=== PATIENT | male | born 1995 | race Caucasian/White ===

== ENCOUNTER → 2016-12-30 | Outpatient (CLI) | payer OTHER ==
[~2016-12-30] MED LIST: CONRAY-43 43% 50ML VIAL (Q9960) As Ordered ONE
--- NOTE | 2016-12-30 10:48 | REP ---
MR ARTHROGRAPHY LEFT SHOULDER: With pre and post intra-articular gadolinium enhanced saline injected imaging: HISTORY: Left shoulder pain. Injury in a fall 3 years ago. No comparison imaging. TECHNIQUE: The injection procedure is performed and dictated separately. Pre and post intra-articular gadolinium enhanced saline injected imaging is acquired. Imaging planes include axial, oblique coronal, oblique sagittal and ABER projection images. T1 and T2-weighted scans are included with and without fat saturation. MRI FINDINGS: Pre-injection MR images demonstrate cortical and medullary bone signal intensity are normal. No significant joint effusion is seen. Post-injection MR imaging shows good filling and enhancement of the left glenohumeral articulation. No loose body is seen. The infraspinatus and biceps tendons appear to be intact. There is some tendonitis tendinosis change in the distal subscapularis tendon and mild tendinosis changes are seen in the distal supraspinatus tendon. No full-thickness or focal cuff tear is appreciated. Superior labrum appears intact. ABER images show no anterior labral tear. Posterior labrum appears intact. IMPRESSION: Tendinosis change in the distal supraspinatus and distal subscapularis tendons. No focal cuff tear is seen. Otherwise negative MR arthrography left shoulder. Signed by Nathen Larson MD 12/30/2016 12:32 P
--- NOTE | 2016-12-31 16:35 | REP ---
Procedure: Left shoulder arthrogram The procedure was performed under the direct supervision of Dr. Larson. History: Left shoulder pain The benefits and risks including but not limited to pain, infection, bleeding and anaphylaxis were explained to the patient and informed consent was obtained. Technique: The left glenohumeral joint space was localized using fluoroscopic guidance. The skin was prepped and draped in a sterile fashion. 1% lidocaine was used as a local anesthetic. Using fluoroscopic guidance a 22 gauge spinal needle was inserted and advanced into the joint. 0.5 ml of Conray 43 was injected to verify placement. 11 ml of a solution containing 20 ml of sterile saline and 0.15 ml of ProHance was injected into the joint. The needle was removed and the patient was taken to MRI for postprocedural imaging. The the patient tolerated the procedure well and there were no immediate complications. 1 second of fluoro time was utilized for this procedure. Reviewed by BERNARD Esqueda 12/31/2016 03:25 PSigned by Nathen Larson MD 12/31/2016 04:26 P
== END ==
LOC: M RADPRO 06:54
PROVIDERS: ATTEND General Practice
DX: M65.812 Other synovitis and tenosynovitis, left shoulder (principal)
CPT/HCPCS: 23350; 73223; 77002; A9576; Q9960